=== PATIENT | female | born 1990 | race American Indian/Alaskan Native ===

== ENCOUNTER 2017-01-10 18:30 | Emergency (ER) | payer MEDICAID, OTHER ==
[2017-01-10 18:54] VITALS: BP 143/97
[2017-01-10] MEDS ORDERED: Acetaminophen/HYDROcodone 325-10 MG Tab PO ONE (20:25)
--- NOTE | 2017-01-10 20:28 | EDM.PDOC ---
ED HPI Trauma - General Chief Complaint: Upper Extremity Injury/Pain Stated Complaint: POSIBLE HAND FRACTURE Time Seen by Provider: 01/10/17 20:25 Source: Reports: Patient History Limitations: Reports: No limitations - History of Present Illness INITIAL COMMENTS - FREE TEXT/NARRATIVE: injured [employer]. Allergies/ADRs: Allergies Penicillins Allergy (Verified 01/10/17 18:54) unknown Home Medications: Ambulatory Orders levETIRAcetam [Keppra] 1,000 mg PO BID 03/29/16 [Confirmed 01/10/17] FLUoxetine [PROzac] 60 mg PO DAILY #7 cap 03/30/16 [Confirmed 01/10/17] Gabapentin [Neurontin] 600 mg PO TID #21 cap 03/30/16 [Confirmed 01/10/17] Past Medical History - Past Health History Medical/Surgical History: Denies Medical/Surgical History HEENT History: Reports: None Cardiovascular History: Reports: None Respiratory History: Reports: None Gastrointestinal History: Reports: None Genitourinary History: Reports: None YARN SIZER History: Reports: None Musculoskeletal History: Reports: Back pain, chronic, Other (see below) Other Musculoskeletal History: pelvic fracture Neurological History: Reports: Migraines, Seizure Psychiatric History: Reports: Addiction, Anxiety, Dementia, PTSD Endocrine/Metabolic History: Reports: None Immunologic History: Reports: None Oncologic (Cancer) History: Reports: None Dermatologic History: Reports: None - Past Surgical History Other HEENT Surgeries/Procedures: jaw wired shut Social & Family History - Family History Family Medical History: Unobtainable - Tobacco Use Smoking Status *Q: Current Every Day Smoker Years of Tobacco use: 10 Packs/Tins Daily: 0.4 Used Tobacco, but Quit: No Second Hand Smoke Exposure: Yes - Caffeine Use Caffeine Use: Reports: None - Alcohol Use Days Per Week of Alcohol Use: 0 Number of Drinks Per Day: 2 Total Drinks Per Week: 0 - Recreational Drug Use Recreational Drug Use: No Drug Use in Last 12 Months: Yes Recreational Drug Type: Reports: Marijuana/Hashish Recreational Drug Use Frequency: Socially - Living Situation & Occupation Living situation: Reports: other (currently in alf) Review of Systems - Review of Systems Review Of Systems: ROS reveals no pertinent complaints other than HPI. Trauma Exam - Physical Exam Exam: See Below Exam Limited By: No limitations General Appearance: Reports: alert, WD/WN, mild distress, other (crying) Head: Reports: atraumatic Ears: Reports: hearing grossly normal Throat/Mouth: Reports: Normal voice, No airway compromise Neck: Reports: non-tender, full range of motion Respiratory Exam: Reports: no respiratory distress Cardiovascular: Reports: regular rate, rhythm GI/Abdominal: Reports: soft, non tender Extremities: Reports: pain with movement, tenderness, other (right 1st MPJ tneder on R/P, [place] wnl, local swelling, minimal discoloration) Neurologic: Reports: no motor/sensory deficits, oriented x 3 Skin: Reports: Normal color, Warm/dry Course - Vital Signs Last Recorded V/S: Last Vital Signs Temp 37.0 C 01/10/17 18:49 Pulse 91 01/10/17 18:49 Resp 18 01/10/17 18:49 BP 143/97 H 01/10/17 18:49 Pulse Ox 100 01/10/17 18:49 - Re-Assessments/Exams Free Text/Narrative Re-Assessment/Exam: 01/10/17 20:27 results discussed with Pt. Departure - Departure Time of Disposition: 20:27 Disposition: Home, Self-Care 01 Condition: good Clinical Impression: Sprain of hand, thumb, right Qualifiers: Encounter type: initial encounter Sprain of finger site: interphalangeal joint Qualified Code(s): S63.621A - Sprain of interphalangeal joint of right thumb, initial encounter Instructions: Finger Sprain, [id number] Forms: ED Department Discharge Additional Instructions: 1) ice intermittently to area for swelling 2) avoid excessive use next 3 days 3) follow up at clinic or recheck as needed
== END 2017-01-10 20:35 | disposition home or self-care (01) ==
LOC: DL.ED 18:30
DX: S63.621A Sprain of interphalangeal joint of right thumb, initial encounter (principal); F41.9 Anxiety disorder, unspecified; F03.90 Unspecified dementia, unspecified severity, without behavioral disturbance, psychotic disturbance, mood disturbance, and anxiety; F17.210 Nicotine dependence, cigarettes, uncomplicated; Z88.0 Allergy status to penicillin; W22.8XXA Striking against or struck by other objects, initial encounter
CPT/HCPCS: 73130; 99283; A9270